=== PATIENT | male | born 1935 | race Caucasian/White ===

== ENCOUNTER → 2016-11-03 | Outpatient (REF) | payer MEDICARE, BC ==
[~2016-11-03] MED LIST: AMOX500T2 PO; CENT1TAB PO; CLOP75TA2 PO; CRES20TA PO; CYMB60CA3 PO; FURO40TA2 PO; HUMU70IN SC; ISOS30TA4 PO; KLOR1TAB69 PO; LANS30CA PO; LANTINJ4 SC; METO50TA2 PO; SPIR1CAP INH; XOPENEX INH; [UNRECOGNIZED DRUG - CODE] PO
== END ==
LOC: M SMT 17:16
PROVIDERS: ATTEND Urology
DX: Z85.51 Personal history of malignant neoplasm of bladder (principal)

== ENCOUNTER → 2017-11-16 | Outpatient (REF) | payer MEDICARE, BC | LOC: M SMT 17:29 | DX: Z85.51 Personal history of malignant neoplasm of bladder (principal) | CPT/HCPCS: 88108 ==

== ENCOUNTER → 2018-12-10 | Outpatient (REF) | payer MEDICARE, BC ==
[~2018-12-10] MED LIST changes: -CRES20TA PO; +CRES20TA2 PO; -METO50TA2 PO; +METO50TA7 PO
== END ==
LOC: M SMT 16:56
PROVIDERS: ATTEND Urology
DX: Z85.51 Personal history of malignant neoplasm of bladder (principal)

== ENCOUNTER → 2020-03-02 | Outpatient (REF) | payer MEDICARE, BC | LOC: M LAB REF 17:41 | PROVIDERS: ATTEND Urology | DX: C67.9 Malignant neoplasm of bladder, unspecified (principal) ==